=== PATIENT | female | born 1995 | race Caucasian/White ===

== ENCOUNTER 2016-12-16 17:40 | Emergency (ER) | payer SELFPAY ==
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
[2016-12-16 17:53] VITALS: TEMP 97.5
[2016-12-16 19:00] VITALS: BP 106/75; PULSE 101; RESP 18; O2SAT 91
== END 2016-12-16 19:12 | disposition home or self-care (01) ==
DX: F10.120 Alcohol abuse with intoxication, uncomplicated (principal)